=== PATIENT | female | born 1975 ===

== ENCOUNTER 2016-06-18 19:52 | Emergency (ER) | payer MEDICAID, OTHER ==
[2016-06-18 20:54] LABS: PH,URINE 6.5 (5.0-8.0); SPECIFIC GRAVITY 1.015 (1.001-1.030); URINE BILIRUBIN NEGATIVE (NEGATIVE); URINE BLOOD NEGATIVE (NEGATIVE); URINE GLUCOSE (UA) NEGATIVE (NEGATIVE); URINE LEUKOCYTE ESTERASE NEGATIVE (NEGATIVE); URINE NITRITE NEGATIVE (NEGATIVE); URINE PROTEIN NEGATIVE (NEGATIVE); URINE UROBILINOGEN NORMAL (0-1 mg/dl)
[2016-06-18 20:59] LABS: HCG,QUALITATIVE URINE NEGATIVE
[2016-06-18 21:01] LABS: URINE APPEARANCE CLEAR; URINE COLOR YELLOW
[2016-06-18] MEDS ORDERED: MAALOX/LIDO2%VISC/SIMETHICONE 40 ML BOT ONE (21:14)
[2016-06-18] MEDS ORDERED: ONDANSETRON 4 MG ODT TAB ONE (21:15)
[2016-06-18 22:16] LABS: ABSOLUTE NEUTROPHIL COUNT 4.7 K/mm3 (1.8-7.7); BASO % 0.4 % (0.2-1.0); EOS # 0.2 (0.0-0.5); EOS % 2.7 % (0.9-2.9); HEMATOCRIT 38.7 % (37.0-47.0); HEMOGLOBIN 12.8 gm/l (12.0-16.0); IMM NEUT% 0.2 % (0-1); LYMPH # 3.2 (1.0-4.8); LYMPH % 36.2 % (15-45); MEAN CORPUSCULAR HEMOGLOBIN 29.1 pg (27.0-31.0); MEAN CORPUSCULAR HGB CONC 33.1 g/dl (33.0-37.0); MEAN PLATELET VOLUME 9.7 fl (7.4-10.4); MONO # 0.7 (0.0-0.8); NEUT % 52.5 % (43-75); PLATELET COUNT 274 K/mm3 (130-400)
[2016-06-18 22:26] LABS: ALB/GLOB RATIO 1.3 (>1.0); ALBUMIN 3.8 gm/dL (3.5-5.7); CALCIUM 8.9 mg/dL (8.6-10.3)
[2016-06-18 22:50] LABS: BAND 2 % (0-10); BASOPHIL 1 % (0-1); EOSINOPHIL 2 % (1-3); LYMPHOCYTE 42 % (15-45); MONOCYTE 4 % (4-12); NEUTROPHILS 49 % (43-75); PLATELET ESTIMATE NORMAL (NORMAL); TOTAL CELLS COUNTED 100
--- NOTE | 2016-06-19 07:54 | US ---
ABDOMINAL-LIMITED COMPARISON: None HISTORY: Right upper quadrant pain. FINDINGS: Gall bladder: Normal, 5.8 x 1.3 cm. Wall thickness 1.9 mm. No stones or sludge. Common hepatic duct: 2.7 mm. Common bile duct: 4.1 mm. IMPRESSION: 1. Normal study. Preliminary report by [facility] radiologist Prakash Howard M.D. 06/19/2016 at 00:17
== END 2016-06-19 00:40 | disposition home or self-care (01) ==
LOC: ED 19:52
DX: K29.70 Gastritis, unspecified, without bleeding (principal)
CPT/HCPCS: 83690; 81025; 85025; 80053; 81003; 76705; 99284; 99283; A9270 ×2